=== PATIENT | female | born 1980 | race Caucasian/White ===

== ENCOUNTER 2016-06-23 18:35 | Emergency (ER) | payer OTHER ==
[2016-06-23 18:59] VITALS: BP 130/75; PULSE 84; TEMP 98; BMI 25.2
--- NOTE | 2016-06-23 20:00 | PDOC ---
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 States has general malaise. States fevers Tmax 102 yesterday. Has been using Tylenol, and is requesting cough medicine with codeine 06/23/16 21:46 Timing/Duration: reports: getting worse Severity: reports: mild, moderate Associated Symptoms: reports: chest pain/soreness (pleuritic), cough, fever/ chills, nasal congestion Past History - Travel Traveled outside of the country in the last 30 days: No Close contact w/someone who was outside of country & ill: No - Past Medical History Allergies/Adverse Reactions: Allergies Allergy/AdvReac Type Severity Reaction Status Date / Time No Known Allergies Allergy Verified 06/23/16 18:55 Home Medications: Ambulatory Orders Albuterol Sulfate Inhaler - [Ventolin HFA Inhaler -] 2 inh PO Q4H PRN #1 inh 01/16 Albuterol 0.083% Nebulizer Jaelyn [Ventolin 0.083% Nebulizer Soln -] 1 neb NEB Q6H PRN #2 box 03/19/15 Prednisone [Deltasone -] 20 mg PO DAILY #4 tablet 03/19/15 Oseltamivir Phosphate [Tamiflu -] 75 mg PO BID #10 capsule 06/23/16 Asthma: Yes - Surgical History Abdominal Surgery: Yes (ABD HERNIA) Cholecystectomy: Yes - Psycho/Social/Smoking Cessation Hx Anxiety: No Suicidal Ideation: No Smoking Status: No Smoking History: Never smoked Have you smoked in the past 12 months: No Number of Cigarettes Smoked Daily: 0 Information on smoking cessation initiated: No Hx Alcohol Use: No Drug/Substance Use Hx: No Substance Use Type: None Respiratory Specific PMHX - Complaint Specific PMHX Bronchitis: No Pneumonia: No Review of Systems - Review of Systems Able to Perform ROS?: Yes Is the patient limited Macedonian proficient: Yes Constitutional: Yes: Symptoms Reported, Malaise HEENTM: Yes: Symptoms Reported, See HPI Respiratory: Yes: Symptoms reported, See HPI, Cough (nonproductive), Wheezing Musculoskeletal: Yes: Symptoms Reported, Muscle Pain Integumentary: No: Symptoms Reported Neurological: No: Symptoms reported All Other Systems: Reviewed and Negative *Physical Exam - Vital Signs Last Vital Signs Temp Pulse Resp BP Pulse Ox 98.0 F 84 18 130/75 100 06/23/16 18:56 06/23/16 18:56 06/23/16 18:56 06/23/16 18:56 06/23/16 18:56 - Physical Exam General Appearance: Yes: Nourished, Appropriately Dressed, Apparent Distress, Mild Distress HEENT: positive: NARAYAN (lastly), TMs Normal (congested but landmarks easily visualized), Pharynx Normal (no redness swelling or exudate, however has posterior sinus drainage), Rhinorrhea (clear) Neck: positive: Tender, Supple, Lymphadenopathy (R), Lymphadenopathy (L) ( nontender) Respiratory/Chest: positive: Lungs Clear (no wheezing or retractions), Normal Breath Sounds Musculoskeletal: positive: Normal Inspection Extremity: positive: Normal Capillary Refill, Normal Inspection, Normal Range of Motion Integumentary: positive: Normal Color, Dry, Warm, Pale 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 Reviewed locked in's to prescribe Phenergan with codeine cough elixir as the highly addictive potential and abuse potential. Patient adamant and requests. Instructed patient to follow-up with her private physician for prescription for narcotic cough elixir as they deem appropriate. Otherwise conservative measures for cough suppressant and Tamiflu Medical Decision Making - Medical Decision Making 06/23/16 20:00 *DC/Admit/Observation/Transfer Diagnosis at time of Disposition: Influenza - Discharge Dispostion Disposition: HOME Condition at time of disposition: Stable Admit: No - Prescriptions Prescriptions: Oseltamivir Phosphate [Tamiflu -] 75 mg PO BID #10 capsule - Referrals Referrals: Kamron Tena MD [Primary Care Provider] - - Patient Instructions Printed Discharge Instructions: DI for Influenza -- Adult Additional Instructions: Rest, drink lots of fluids: Teas, water, soups, Pedialyte Saltwater gargles Steamy showers/seem to face break up mucus Old-fashioned treatments help! Avoid contact with others until fevers and cough resolved as this is very contagious Lots of handwashing and good hygiene Continue [id number] medications for symptomatic relief Tylenol or Motrin for fever and pain Take all of Tamiflu as directed: 1 tab every 12 hours for 5 days Followup with private physician in one to 2 days as needed or if worsening Return to emergency department for worsened symptoms, fevers, dehydration Influenza takes between 5 and 7 days for resolution To not participate in any activity, work, or school until fevers and cough are gone for at least one day - Post Discharge Activity Work/School Note: Back to Work
== END 2016-06-23 20:09 | disposition home or self-care (01) ==
LOC: JERFT 18:35
DX: J11.1 Influenza due to unidentified influenza virus with other respiratory manifestations (principal); J45.909 Unspecified asthma, uncomplicated
CPT/HCPCS: 99281-25

== ENCOUNTER 2016-09-18 11:09 | Emergency (ER) | payer OTHER ==
[2016-09-18 11:13] VITALS: BP 106/67; PULSE 90; TEMP 98; BMI 24.8
[2016-09-18] MEDS ORDERED: IBUPROFEN 400 MG TABLET (FP) PO ONE (11:43)
--- NOTE | 2016-09-18 11:55 | PDOC ---
History of Present Illness - General Chief Complaint: Pain Stated Complaint: BACK & RT HIP PAIN Time Seen by Provider: 09/18/16 11:16 History Source: Patient - History of Present Illness Occurred: reports: yesterday Pain Location: reports: back Method of Injury: Yes: fall Past History - Past Medical History Allergies/Adverse Reactions: Allergies Allergy/AdvReac Type Severity Reaction Status Date / Time No Known Allergies Allergy Verified 09/18/16 11:13 Home Medications: Ambulatory Orders Tramadol HCl 50 mg PO Q6H #6 tablet MDD 200mg 09/18/16 Asthma: Yes - Surgical History Abdominal Surgery: Yes (ABD HERNIA) Cholecystectomy: Yes - Psycho/Social/Smoking Cessation Hx Anxiety: No Suicidal Ideation: No Smoking Status: No Smoking History: Never smoked Have you smoked in the past 12 months: No Number of Cigarettes Smoked Daily: 0 Information on smoking cessation initiated: No Hx Alcohol Use: No Drug/Substance Use Hx: No Substance Use Type: None Review of Systems - Review of Systems Musculoskeletal: Yes: Back Pain. No: Neck Pain Neurological: No: Numbness, Tingling, Weakness *Physical Exam - Vital Signs Last Vital Signs Temp Pulse Resp BP Pulse Ox 98 F 90 18 106/67 98 09/18/16 11:10 09/18/16 11:10 09/18/16 11:10 09/18/16 11:10 09/18/16 11:10 - Physical Exam General Appearance: Yes: Appropriately Dressed. No: Apparent Distress HEENT: positive: Normal Voice Neck: positive: Supple Respiratory/Chest: negative: Respiratory Distress Musculoskeletal: positive: Vertebral Tenderness Extremity: positive: Normal Inspection Integumentary: positive: Dry, Warm Neurologic: positive: Fully Oriented, Alert, Normal Mood/Affect ED Treatment Course - RADIOLOGY Radiology Studies Ordered: Category Date Time Status SPINE-LUMBAR SACRAL [RAD] Stat Radiology 09/18/16 11:43 Ordered Medical Decision Making - Medical Decision Making 09/18/16 11:55 36 yo F, h/o gastritis, here w/ low back pain s/p trip and fall yesterday. Reports falling "flat on my back". Unable to describe pain but states it is severe, non-radiating and worse w/ any movement. No LE weakness, saddle anesthesia or b/b incontinence. Taking tylenol w/ no relief. Pt well aury and in NAD w/ +ttp diffusely to lower back, pt ambulatory in ED. M.l MSK, r/o fx. Pain control in ED 09/18/16 11:58 09/18/16 13:07 XR neg for fx. Pt better s/p meds. Dc w/ pain control. *DC/Admit/Observation/Transfer Diagnosis at time of Disposition: Back sprain - Discharge Dispostion Disposition: HOME Condition at time of disposition: Good - Prescriptions Prescriptions: Tramadol HCl 50 mg PO Q6H #6 tablet MDD 200mg - Patient Instructions Printed Discharge Instructions: DI for Back Strain or Sprain Additional Instructions: Rousseau XR no mostr ninguna fractura. [place] el tylenol para el dolor. [place] tramadol segn sea necesario para el dolor josie. Si el dolor persiste, siga con rousseau PMD Print Language: LITHUANIAN
[2016-09-18] MEDS ORDERED: KETOROLAC TROMETHAMINE 60 MG/2 ML VIAL IM ONE (12:24)
[2016-09-18] MEDS ORDERED: KETOROLAC TROMETHAMINE 60 MG/2 ML VIAL ONE (12:28)
== END 2016-09-18 13:26 | disposition home or self-care (01) ==
LOC: JERFT 11:09
PROC: 3E0233Z Introduction of Anti-inflammatory into Muscle, Percutaneous Approach (ICD-10-PCS; principal; 2016-09-18)
DX: S39.012A Strain of muscle, fascia and tendon of lower back, initial encounter (principal); W01.0XXA Fall on same level from slipping, tripping and stumbling without subsequent striking against object, initial encounter; Y93.89 Activity, other specified; Y92.89 Other specified places as the place of occurrence of the external cause; Y99.8 Other external cause status
CPT/HCPCS: 72100-TC; 84703; 99281-25

== ENCOUNTER 2016-10-25 18:09 | Emergency (ER) | payer OTHER ==
[2016-10-25 18:15] VITALS: BP 118/65; PULSE 106; TEMP 98.8; BMI 24.6
[2016-10-25] MEDS ORDERED: IBUPROFEN 600 MG TABLET (FP) PO ONE ×2 (18:35→18:37)
--- NOTE | 2016-10-25 18:41 | PDOC ---
History of Present Illness <Gabriella Rodriguez - Last Filed: 10/25/16 19:45> - General History Source: Patient Exam Limitations: No Limitations - History of Present Illness Initial Comments: 10/25/16 18:38 36-year-old female presents with sore throat and complaints of generalized chills for the past 2 days. 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 Patient denies difficulty swallowing, recent dental work , decreased hearing, thyroid disease, cough, shortness of breath, abdominal pain. Patient denies medical history. Timing/Duration: other Severity: mild Associated Symptoms: reports: fever/chills. denies: cough <BriaSalley - Last Filed: 10/26/16 07:40> - General Chief Complaint: Sore Throat Stated Complaint: PAIN Time Seen by Provider: 10/25/16 18:28 Past History <Gabriella Rodriguez - Last Filed: 10/25/16 19:45> - Past Medical History Asthma: Yes - Surgical History Abdominal Surgery: Yes (ABD HERNIA) Cholecystectomy: Yes - Psycho/Social/Smoking Cessation Hx Anxiety: No Suicidal Ideation: No Smoking Status: No Smoking History: Never smoked Have you smoked in the past 12 months: No Number of Cigarettes Smoked Daily: 0 Hx Alcohol Use: No Drug/Substance Use Hx: No Substance Use Type: None Patient Lives Alone: No Lives with/in: spouse/SO <Marilyn Fraser - Last Filed: 10/26/16 07:40> - Past Medical History Allergies/Adverse Reactions: Allergies Allergy/AdvReac Type Severity Reaction Status Date / Time No Known Allergies Allergy Verified 10/25/16 18:15 Home Medications: Ambulatory Orders Ibuprofen [Motrin -] 600 mg PO TID PRN #21 tablet 10/25/16 Loratadine [Claritin] 10 mg PO DAILY #30 tablet 10/25/16 Phenol/Glycerin [Chloraseptic Max [place]] 1 spray MM QID PRN #1 bottle 10/25/16 Review of Systems - Review of Systems Able to Perform ROS?: Yes Constitutional: Yes: Chills HEENTM: Yes: Ear Pain (mild bilateral), Throat Pain. No: Symptoms Reported Respiratory: No: Symptoms reported Musculoskeletal: No: Symptoms Reported Integumentary: No: Symptoms Reported Neurological: No: Symptoms reported Endocrine: No: Symptoms Reported Hematologic/Lymphatic: No: Symptoms Reported <Marilyn Fraser - Last Filed: 10/26/16 07:40> *Physical Exam - Vital Signs Last Vital Signs Temp Pulse Resp BP Pulse Ox 98.8 F 106 H 20 118/65 98 10/25/16 18:13 10/25/16 18:13 10/25/16 18:13 10/25/16 18:13 10/25/16 18:13 <Gabriella Rodriguez - Last Filed: 10/25/16 19:45> - Vital Signs Last Vital Signs Temp Pulse Resp BP Pulse Ox 98.8 F 106 H 20 118/65 98 10/25/16 18:13 10/25/16 18:13 10/25/16 18:13 10/25/16 18:13 10/25/16 18:13 - Physical Exam General Appearance: Yes: Nourished, Appropriately Dressed. No: Apparent Distress HEENT: positive: EOMI, NARAYAN, TMs Normal, Pharynx Normal. negative: Pale Conjunctivae, Pharyngeal Erythema (2+ pink tonsils deangelo) Neck: positive: Normal Thyroid. negative: Lymphadenopathy (R), Lymphadenopathy (L) Respiratory/Chest: positive: Lungs Clear, Normal Breath Sounds. negative: Respiratory Distress, Accessory Muscle Use Cardiovascular: positive: Regular Rhythm, Regular Rate. negative: Murmur Gastrointestinal/Abdominal: positive: Soft. negative: Tenderness Integumentary: positive: Normal Color, Warm, Moist Neurologic: positive: Motor Strength 5/5 (ambulatory) <Marilyn Fraser - Last Filed: 10/26/16 07:40> ED Treatment Course - ADDITIONAL ORDERS Additional order review: 10/25/16 18:30 Group A Strep Rapid Antigen - Final Throat - Medications Given in the ED: ED Medications Discontinued Medications Generic Name Dose Route Start Last Admin Trade Name Freq PRN Reason Stop Dose Admin Ibuprofen 600 mg 10/25/16 18:35 10/25/16 18:39 Motrin - PO 10/25/16 18:36 600 mg ONCE ONE Administration <Gabriella Rodriguez - Last Filed: 10/25/16 19:45> Medical Decision Making - Medical Decision Making 10/25/16 18:45 Patient complains of chills, sore throat, mild bilateral ear pain. Patient on exam had no acute findings. Patient was ordered for Motrin and rapid strep. 10/26/16 07:40 <Marilyn Fraser - Last Filed: 10/26/16 07:40> *DC/Admit/Observation/Transfer - Discharge Dispostion Admit: No <Gabriella Rodriguez - Last Filed: 10/25/16 19:45> <Marilyn Fraser - Last Filed: 10/26/16 07:40> Diagnosis at time of Disposition: Sore throat - Discharge Dispostion Disposition: HOME Condition at time of disposition: Stable - Prescriptions Prescriptions: Phenol/Glycerin [Chloraseptic Max [place]] 1 spray MM QID PRN #1 bottle PRN Reason: Pain Loratadine [Claritin] 10 mg PO DAILY #30 tablet Ibuprofen [Motrin -] 600 mg PO TID PRN #21 tablet PRN Reason: Fever Or Pain - Referrals Referrals: Roopa Carreno [Primary Care Provider] - - Patient Instructions Printed Discharge Instructions: DI for Allergic Rhinitis Additional Instructions: Please take medications as prescribed and follow up with your primary care doctor if symptoms persist past 7 days. If you experience any shortness of breath, chest pain, vomiting, diarrhea, or any new or worsening symptoms, please return to the ER. Print Language: JAPANESE
== END 2016-10-25 19:48 | disposition home or self-care (01) ==
LOC: JERFT 18:09
DX: J02.9 Acute pharyngitis, unspecified (principal)
CPT/HCPCS: 87070; 87430; 99281-25

== ENCOUNTER 2017-12-22 07:17 | Emergency (ER) | payer OTHER ==
--- NOTE | 2017-12-22 08:48 | PDOC ---
History of Present Illness - General Chief Complaint: Pain, Acute Stated Complaint: PAIN Time Seen by Provider: 12/22/17 08:32 - History of Present Illness Initial Comments: 12/22/17 08:47 37 yo F with h/o HLD, asthma, cholecystecomy, and ovarian cysts who p/w diffuse abdominal pain. Patient with acute on chronic abdominal pain within past 24 hours. Reports diffuse, crampy abdominal pain, worse with movement, radiating from right and left side. Also reports light and dark stools, and "strong smelling urine." + Decreased appetite, nausea, and diffuse pruritus x 24 hours. Denies postprandial pain. Last seen at [facility] ED (09/14/17) with LLQ abdominal pain and ovarian cyst ( absent torsion) confirmed by Transvaginal U/S. Patient denies F,C, CP, SOB, hematuria, irregular vaginal bleeding, diarrhea, constipation, lightheadedness, weakness, sensory changes. PMHx: as noted above. ROS: as noted SHx: Social Etoh. Denies tobacco, IVDA Allergies: NKDA Past History - Past Medical History Allergies/Adverse Reactions: Allergies Allergy/AdvReac Type Severity Reaction Status Date / Time No Known Allergies Allergy Verified 12/22/17 08:21 Home Medications: Ambulatory Orders Cholecalciferol (Vitamin D3) [Vitamin D3 -] 600 unit PO DAILY 12/22/17 Asthma: Yes COPD: No - Surgical History Abdominal Surgery: Yes (ABD HERNIA) Cholecystectomy: Yes - Suicide/Smoking/Psychosocial Hx Smoking Status: No Smoking History: Never smoked Have you smoked in the past 12 months: No Number of Cigarettes Smoked Daily: 0 Information on smoking cessation initiated: No Hx Alcohol Use: No Drug/Substance Use Hx: No Substance Use Type: None Review of Systems - Review of Systems Comments:: 12/22/17 09:47 GENERAL/CONSTITUTIONAL: No fever or chills. No weakness. HEAD, EYES, EARS, NOSE AND THROAT: No change in vision. No ear pain or discharge. No sore throat. CARDIOVASCULAR: No chest pain or shortness of breath RESPIRATORY: No cough, wheezing, or hemoptysis. GASTROINTESTINAL: + abdominal pain. No nausea, vomiting, diarrhea or constipation. GENITOURINARY: No dysuria, frequency, or change in urination. MUSCULOSKELETAL: No joint or muscle swelling or pain. No neck or back pain. SKIN: No rash NEUROLOGIC: No headache, vertigo, loss of consciousness, or change in strength/ sensation. ENDOCRINE: No increased thirst. No abnormal weight change HEMATOLOGIC/LYMPHATIC: No anemia, easy bleeding, or history of blood clots. ALLERGIC/IMMUNOLOGIC: No hives or skin allergy. *Physical Exam - Vital Signs Last Vital Signs Temp Pulse Resp BP Pulse Ox 98.5 F 63 16 106/71 100 12/22/17 08:22 12/22/17 08:22 12/22/17 08:22 12/22/17 08:22 12/22/17 08:22 - Physical Exam Comments: 12/22/17 09:48 GENERAL: Awake, alert, and fully oriented, in no acute distress HEAD: No signs of trauma, normocephalic, atraumatic EYES: PERRLA, EOMI, sclera anicteric, conjunctiva clear ENT: Hearing grossly normal, nares patent, oropharynx clear without exudates. Moist mucosa NECK: Normal ROM, supple, no lymphadenopathy, JVD, or masses LUNGS: No distress, speaks full sentences, clear to auscultation bilaterally HEART: Regular rate and rhythm, normal S1 and S2, no murmurs, rubs or gallops, peripheral pulses normal and equal bilaterally. ABDOMEN: + diffuse (RUQ predominant) ttp. Soft, NDS, normoactive bowel sounds. No guarding, no rebound. No masses. Neg CVA ttp. EXTREMITIES : Normal inspection, Normal range of motion, no edema. No clubbing or cyanosis. SKIN: Warm, Dry, normal turgor, no rashes or lesions noted ED Treatment Course - LABORATORY CBC & Chemistry Diagram: 12/22/17 10:35 12/22/17 10:35 Medical Decision Making - Medical Decision Making 12/22/17 09:45 37 yo F with h/o HLD, asthma, cholecystecomy, and ovarian cysts who p/w diffuse abdominal pain. VSS, AF. Abdomen diffusely ttp, with RUQ predominant ttp. Non jaundiced appearing. R/o cholangitis vs. biliary dz. DDx: colitis, pancreatitis , cystitis, pyelonephritis, appendicitis, ovarian pathology. Ed Course: CBC, CMP, Lipase UA, HCG Tylenol, Pepcid, Zofran 12/22/17 13:17 CT AP: Unremarkable 12/22/17 13:17 CBC,CMP: Unremarkable UA: 3+ BLOOD, 9 RBC 12/22/17 15:00 Transvaginal U/S: Unremarkable Patient stable for d/c with return precautions. Advised to f/u with GI and PMD. *DC/Admit/Observation/Transfer Diagnosis at time of Disposition: Abdominal pain Qualifiers: Abdominal location: generalized Qualified Code(s): R10.84 - Generalized abdominal pain - Discharge Dispostion Condition at time of disposition: Stable Decision to Admit order: No - Referrals Referrals: Ty Villalobos MD [Primary Care Provider] - Henry Freeman MD [Staff Physician] - - Patient Instructions Printed Discharge Instructions: DI for Abdominal Pain-Adult Additional Instructions: Please return to the emergency department with any new or worsening symptoms or concerns. Please follow up with your primary care physician within 72 hours. Please follow up with gastroenterology within one week. - Post Discharge Activity - Attestations Physician Attestion: 12/22/17 13:20 I attest to the information provided in this note.
[2017-12-22 08:49] VITALS: BMI 25.0
[2017-12-22] MEDS ORDERED: ACETAMINOPHEN 1000 MG/100 ML VIAL (NON FORMULARY) IVPB ONE (09:40)
[2017-12-22] MEDS ORDERED: ONDANSETRON 4 MG/2 ML VIAL IVPUSH ONE (09:40)
[2017-12-22] MEDS ORDERED: FAMOTIDINE 20 MG/50 ML IVPB 20 MG/50 ML MG IVPB ONE ×2 (09:40→10:16)
[2017-12-22] MEDS ORDERED: ONDANSETRON 4 MG/2 ML VIAL ONE (10:16)
[2017-12-22 10:45] LABS: URINE APPEARANCE CLEAR; URINE BILIRUBIN NEGATIVE (<2.0 mg/dL); URINE COLOR STRAW; URINE GLUCOSE (UA) NEGATIVE (NEGATIVE); URINE KETONE NEGATIVE (NEGATIVE); URINE LEUK ESTERASE NEGATIVE (NEGATIVE); URINE NITRITE NEGATIVE (NEGATIVE); URINE PROTEIN NEGATIVE (NEGATIVE); URINE UROBILINOGEN NEGATIVE mg/dL (0.2-1.0)
[2017-12-22 10:47] LABS: HCG,QUALITATIVE URINE NEGATIVE
[2017-12-22 10:48] LABS: EPI CELLS RARE /HPF (FEW)
[2017-12-22 10:49] LABS: BASO % 0.7 % (0-2.0); EOS % 7.9 % (0-4.5); HEMATOCRIT 38.8 % (32.4-45.2); HEMOGLOBIN 13.5 GM/dL (10.7-15.3); LYMPH % 30.3 % (8-40); MCH 32.4 pg (25.7-33.7); MCHC 34.8 g/dl (32.0-36.0); MEAN CELL VOLUME 93.3 fl (80-96); MONO % 4.4 % (3.8-10.2); NEUT % 56.7 % (42.8-82.8); PLATELET COUNT 214 K/MM3 (134-434); RBC 4.16 M/mm3 (3.60-5.2); RDW 13.3 % (11.6-15.6); WHITE BLOOD COUNT 7.1 K/mm3 (4.0-10.0)
[2017-12-22] MEDS ORDERED: ACETAMINOPHEN INJECTION 100 ML IVPB ONE (10:59)
--- NOTE | 2017-12-22 11:08 | PDOC ---
*Physical Exam - Vital Signs Last Vital Signs Temp Pulse Resp BP Pulse Ox 98.5 F 63 16 106/71 100 12/22/17 08:22 12/22/17 08:22 12/22/17 08:22 12/22/17 08:22 12/22/17 08:22 - Physical Exam General Appearance: Yes: Nourished ED Treatment Course - LABORATORY CBC & Chemistry Diagram: 12/22/17 10:35 12/22/17 10:35 *DC/Admit/Observation/Transfer - Referrals Referrals: Ty Villalobos MD [Primary Care Provider] - - Patient Instructions - Post Discharge Activity
[2017-12-22 11:10] LABS: ALBUMIN 3.8 g/dl (3.4-5.0); ALK PHOS 90 U/L (45-117); ANION GAP 6 (8-16); BILIRUBIN,TOTAL 0.2 mg/dL (0.2-1.0); BLOOD UREA NITROGEN 10 mg/dL (7-18); CALCIUM 8.6 mg/dL (8.5-10.1); CHLORIDE 109 mmol/L (98-107); CO2 27 mmol/L (21-32); CREATININE 0.5 mg/dL (0.55-1.02); GLUCOSE,RANDOM 84 mg/dL (74-106); POTASSIUM 4.2 mmol/L (3.5-5.1); SGOT/AST 19 U/L (15-37); SGPT/ALT 21 U/L (12-78); SODIUM 142 mmol/L (136-145); TOT PROT 7.3 g/dl (6.4-8.2)
--- NOTE | 2017-12-22 11:11 | PDOC ---
Attending Attestation - Resident Resident Name: Raulito Booker - ED Attending Attestation I have performed the following: I have examined & evaluated the patient, The case was reviewed & discussed with the resident, I agree w/resident's findings & plan, Exceptions are as noted - HPI HPI: 12/22/17 11:09 37 yo F h/o cholecystectomy here wtih /co right upper quadrant and now generalized abd pain. nausea no vomiting. no f/c no mod factors. urinary frequency. - Physicial Exam PE: 12/22/17 11:09 awake alert lungs clear bilaterally heart rrr no mrg. abd soft , mild ruq ttp. no rebound no guarding. no cva tenderness. ext wwp no edema. no calf tenderness. pulses equal strong symmetric. nuero alert oriented x 3. skin warm and dry. - Medical Decision Making 12/22/17 11:10 differential diagnosis. retained stone, pyelo uti renal colic, ruptured ovarian cyst. plan tvus, possible ct labs ua ucg. reassess.
[2017-12-22 18:25] VITALS: BP 115/86; PULSE 69; TEMP 97.9
== END 2017-12-22 15:17 | disposition home or self-care (01) ==
LOC: JER 07:17
PROC: 3E033GC Introduction of Other Therapeutic Substance into Peripheral Vein, Percutaneous Approach (ICD-10-PCS; principal; 2017-12-22)
PROC: 3E033GC Introduction of Other Therapeutic Substance into Peripheral Vein, Percutaneous Approach (ICD-10-PCS; 2017-12-22)
PROC: 3E033NZ Introduction of Analgesics, Hypnotics, Sedatives into Peripheral Vein, Percutaneous Approach (ICD-10-PCS; 2017-12-22)
DX: R10.84 Generalized abdominal pain (principal); Z90.49 Acquired absence of other specified parts of digestive tract
CPT/HCPCS: 36415; 74176; 76830-TC; 80053; 81003; 81015; 83690; 84703; 85025; 87086; 96365; 96375; 99282-25; J0131

== ENCOUNTER 2018-02-06 10:32 | Day surgery (SDC) | payer OTHER ==
[2018-02-06 11:13] VITALS: BMI 24.2
[2018-02-06 12:43] VITALS: TEMP 98.7
[2018-02-06 13:04] VITALS: PULSE 88
[2018-02-06 13:20] VITALS: BP 109/69
--- NOTE | 2018-02-07 11:48 | PATH ---
Surgical Pathology Report Patient Name: KAYLA TABOR [facility]. Rec. #: [id number] /Age/Gender: 1980 (Age: 38) / F Account: [id number] Location: U-ENDOSCOPY Taken: 02/06/2018 Received: 02/06/2018 Reported: 02/07/2018 Physicians: Mikey Mei M.D. Specimen(s) Received A: BX 2ND PORTION DUODENUM B: BX ANTRUM Clinical History Dyspepsia, epigastric pain Postoperative diagnosis: Gastritis, hiatal hernia Final Diagnosis A. DUODENUM, SECOND PORTION, BIOPSY: DUODENAL MUCOSA WITHOUT SIGNIFICANT PATHOLOGIC FINDINGS. B. STOMACH, ANTRUM, BIOPSY: GASTRIC ANTRAL MUCOSA WITH MILD CHRONIC GASTRITIS. IMMUNOHISTOCHEMICAL STAIN FOR H. PYLORI IS NEGATIVE. Electronically Signed Karyn Barton M.D. Gross Description A. Received in formalin, labeled "biopsy second portion of duodenum" are 3 el, irregular portions of soft tissue ranging from 0.1-0.2 cm. in greatest dimension. The specimens are submitted in toto in one cassette. B. Received in formalin, labeled "biopsy antrum" are 2 el, irregular portions of soft tissue measuring 0.3 and 0.4 cm. in greatest dimension. The specimens are submitted in toto in one cassette. 02/06/201802/06/2018
== END 2018-02-06 13:21 | disposition home or self-care (01) ==
LOC: JASU-ENDO 10:32
PROVIDERS: ATTEND Internal Medicine Gastroenterology
PROC: 0DB68ZX Excision of Stomach, Via Natural or Artificial Opening Endoscopic, Diagnostic (ICD-10-PCS; 2018-02-06)
PROC: 0DB98ZX Excision of Duodenum, Via Natural or Artificial Opening Endoscopic, Diagnostic (ICD-10-PCS; principal; 2018-02-06 12:00)
DX: K29.50 Unspecified chronic gastritis without bleeding (principal); R10.13 Epigastric pain
CPT/HCPCS: 84703; 88305-TC; 88342-TC

== ENCOUNTER 2019-01-08 10:49 | Emergency (ER) | payer OTHER ==
[2019-01-08 10:54] VITALS: BP 101/66; PULSE 81; TEMP 97.8; BMI 24.8
--- NOTE | 2019-01-08 11:28 | PDOC ---
History of Present Illness - General Chief Complaint: Pain, Acute Stated Complaint: ABD PAIN Time Seen by Provider: 01/08/19 11:20 History Source: Patient Exam Limitations: Clinical Condition - History of Present Illness Initial Comments: 01/08/19 11:37 Patient with history of asthma present with complaint of 2 months history of right upper quadrant and right lower quadrant pain which has been worsening the past 2 days. Patient reported going to see her SCOURING MACHINE OPERATOR this morning for pain which she did the vaginal exam and said everything was fine but signed for appendicitis given right lower quadrant pain and sent her for evaluation to rule out appendicitis. Patient reported nausea but denies vomiting. Reported tactile fevers yesterday but no fever today. Patient also reported mild burning with urination but denies united frequency or dysuria. Denies taking any medication for symptoms. Denies constipation, diarrhea, weakness. LMP December 29. Denies any other symptoms Timing/Duration: other (2 months) Past History - Past Medical History Allergies/Adverse Reactions: Allergies Allergy/AdvReac Type Severity Reaction Status Date / Time No Known Allergies Allergy Verified 01/08/19 10:55 Home Medications: Ambulatory Orders Cholecalciferol (Vitamin D3) [Vitamin D -] 600 unit PO DAILY 12/22/17 Cholecalciferol (Vitamin D3) [Vitamin D3] 2,000 unit PO DAILY #90 capsule Albuterol 0.083% Nebulizer Jaelyn [Ventolin 0.083% Nebulizer Soln -] 1 neb IA PRN 02/05/18 Ibuprofen 800 mg PO Q8H PRN #20 tablet 01/08/19 Mag Hydrox/Aluminum Hyd/Simeth [Maalox Advanced Suspension] 30 ml PO Q8H PRN # 100 ml 01/08/19 Anemia: No Asthma: Yes Cancer: No Cardiac Disorders: No CVA: No COPD: No CHF: No Dementia: No Diabetes: No GI Disorders: Yes (GASTRITIS, H.PYLORI) Disorders: No HTN: No Hypercholesterolemia: No Liver Disease: No Seizures: No Thyroid Disease: No - Surgical History Abdominal Surgery: Yes (ABD HERNIA) Appendectomy: No Cardiac Surgery: No Cholecystectomy: Yes Lung Surgery: No Neurologic Surgery: No Orthopedic Surgery: No - Suicide/Smoking/Psychosocial Hx Smoking Status: No Smoking History: Never smoked Have you smoked in the past 12 months: No Number of Cigarettes Smoked Daily: 0 Hx Alcohol Use: No Drug/Substance Use Hx: No Substance Use Type: None Hx Substance Use Treatment: No Review of Systems - Review of Systems Able to Perform ROS?: Yes Constitutional: No: Chills, Fever, Malaise HEENTM: No: Symptoms Reported Respiratory: No: Symptoms reported Cardiac (ROS): No: Symptoms Reported ABD/GI: Yes: Symptoms Reported, See HPI, Nausea, Abdominal cramping (RUQ,RLQ pain). No: Abdominal Distended, Abd. Pain w/ defecation, Blood Streaked Bowels , Constipated, Diarrhea, Difficulty Swallowing, Poor Fluid Intake, Rectal Bleeding, Vomiting, Indigestion : Yes: Symptoms Reported, See HPI, Burning. No: Dysuria, Discharge, Frequency , Flank Pain, Urgency Musculoskeletal: No: Symptoms Reported, Back Pain Neurological: No: Symptoms reported, Dizziness All Other Systems: Reviewed and Negative *Physical Exam - Vital Signs Last Vital Signs Temp Pulse Resp BP Pulse Ox 97.8 F 81 16 101/66 96 01/08/19 10:52 01/08/19 10:52 01/08/19 10:52 01/08/19 10:52 01/08/19 10:52 - Physical Exam Comments: 01/08/19 11:45 GENERAL: Well developed, well nourished. Awake and alert. No acute distress. HEENT: Normocephalic, atraumatic. PERRLA, EOMI. No conjunctival pallor. Sclera are non-icteric. Moist mucous membranes. Oropharynx is clear. NECK: Supple. Full ROM. CARDIOVASCULAR: Regular rate and rhythm. No murmurs, rubs, or gallops. Distal pulses are 2+ and symmetric. PULMONARY: No evidence of respiratory distress. Lungs clear to auscultation bilaterally. No wheezing, rales or rhonchi. ABDOMINAL: Soft. Mild tenderness to right upper quadrant and right lower quadrant areas. Non-distended. No rebound or guarding. No organomegaly. Normoactive bowel sounds. MUSCULOSKELETAL Normal range of motion at all joints. SKIN: Warm and dry. Normal capillary refill. No rashes. No jaundice. NEUROLOGICAL: Alert, awake, appropriate. Gait is normal without ataxia. PSYCHIATRIC: Cooperative. Good eye contact. Appropriate mood General Appearance: Yes: Nourished, Appropriately Dressed, Mild Distress ED Treatment Course - LABORATORY CBC & Chemistry Diagram: 01/08/19 13:08 01/08/19 13:08 Medical Decision Making - Medical Decision Making 01/08/19 11:39 Patient with history of asthma present with complaint of 2 months history of right upper quadrant and right lower quadrant pain which has been worsening the past 2 days. Patient reported going to see her SCOURING MACHINE OPERATOR this morning for pain which she did the vaginal exam and said everything was fine but signed for appendicitis given right lower quadrant pain and sent her for evaluation to rule out appendicitis. Patient reported nausea but denies vomiting. Reported tactile fevers yesterday but no fever today. Patient also reported mild burning with urination but denies united frequency or dysuria. Denies taking any medication for symptoms. Denies constipation, diarrhea, weakness. LMP December 29. Denies any other symptoms Exam significant for mild tenderness to right upper quadrant and right lower quadrant pain without guarding or rebound normal bowel sounds diffusely. Normal cardio and lung exam. Symptoms likely gastroenteritis versus appendicitis versus ovarian cysts. CBC, CMP and lipase lab ordered. UA, urine hCG a urine culture ordered. Urine GC and chlamydia tests ordered. Abdominal CT with IV contrast ordered to evaluate for appendicitis 01/08/19 15:57 UA, urine culture, CBC labs unremarkable. pelvic U/S shows no acute pathology. Abd/pelvis CT shows no appendicitis or acute abdominal pathology. Patient symptoms likely muscle cramps vs gastroenteritis. Patient stable for discharge on maalox prn and motrin prn for pain with GI f/u Pt also advised to f/u back with her SCOURING MACHINE OPERATOR who sent her to r/o appendicitis. *DC/Admit/Observation/Transfer Diagnosis at time of Disposition: Abdominal pain Qualifiers: Abdominal location: unspecified location Qualified Code(s): R10.9 - Unspecified abdominal pain - Discharge Dispostion Disposition: HOME Condition at time of disposition: Stable Decision to Admit order: No - Prescriptions Prescriptions: Ibuprofen 800 mg PO Q8H PRN #20 tablet PRN Reason: pain Mag Hydrox/Aluminum Hyd/Simeth [Maalox Advanced Suspension] 30 ml PO Q8H PRN # 100 ml PRN Reason: abdominal discomfort - Referrals Referrals: David Welilngton MD [Staff Physician] - - Patient Instructions Additional Instructions: Your abdominal Cats scan and ultrasound is normal. Your labs are also normal. Take prescribed medication as needed for pain. Follow-up with referred GI if symptoms persist - Post Discharge Activity
--- NOTE | 2019-01-08 12:05 | PDOC ---
*Physical Exam - Vital Signs Last Vital Signs Temp Pulse Resp BP Pulse Ox 97.8 F 81 16 101/66 96 01/08/19 10:52 01/08/19 10:52 01/08/19 10:52 01/08/19 10:52 01/08/19 10:52 ED Treatment Course - LABORATORY CBC & Chemistry Diagram: 01/08/19 13:08 01/08/19 13:08 Medical Decision Making - Medical Decision Making 01/08/19 12:03 Ms Daugherty presents to the ER today due to abdominal pain Pt has had 2 months history of right sided abdominal pain Pt saw OFFICE MACHINE TECHNICIAN this morning who referred her to the ER to rule out appendicitis. (+) Nausea, no vomiting Will do: Labs CT TV US Re Assess 01/08/19 15:11 CT - no acute appendicitis US - no ovarian torsion Pt seen by RENNY Ward Agree with plan *DC/Admit/Observation/Transfer Diagnosis at time of Disposition: Abdominal pain - Discharge Dispostion Disposition: HOME Condition at time of disposition: Stable - Prescriptions Prescriptions: Cephalexin Monohydrate [Keflex -] 500 mg PO BID #14 capsule Ibuprofen 800 mg PO Q8H PRN #20 tablet PRN Reason: pain Mag Hydrox/Aluminum Hyd/Simeth [Maalox Advanced Suspension] 30 ml PO Q8H PRN # 100 ml PRN Reason: abdominal discomfort - Referrals Referrals: David Wellington MD [Staff Physician] - - Patient Instructions Additional Instructions: Your abdominal Cats scan and ultrasound is normal. Your labs are also normal. Take prescribed medication as needed for pain. Follow-up with referred GI if symptoms persist - Post Discharge Activity
[2019-01-08 13:20] LABS: BASO % 1.4 % (0-2.0); EOS % 7.8 % (0-4.5); HEMATOCRIT 41.7 % (32.4-45.2); HEMOGLOBIN 14.2 GM/dL (10.7-15.3); LYMPH % 35.1 % (8-40); MCH 32.3 pg (25.7-33.7); MCHC 34.1 g/dl (32.0-36.0); MEAN CELL VOLUME 94.7 fl (80-96); MEAN PLT VOLUME 9.1 fl (7.5-11.1); MONO % 4.6 % (3.8-10.2); NEUT % 51.1 % (42.8-82.8); PLATELET COUNT 281 K/MM3 (134-434); RDW 13.5 % (11.6-15.6); WHITE BLOOD COUNT 6.5 K/mm3 (4.0-10.0)
[2019-01-08 13:55] LABS: CHOLESTEROL 248 mg/dL (50-200); HDL CHOLESTEROL 51 mg/dL (40-60); TRIGLYCERIDES 192 mg/dL (0-150)
[2019-01-08 14:02] LABS: ALBUMIN 3.9 g/dl (3.4-5.0); BILIRUBIN,TOTAL 0.4 mg/dL (0.2-1); BLOOD UREA NITROGEN 8.6 mg/dL (7-18); CALCIUM 9.1 mg/dL (8.5-10.1); CREATININE 0.5 mg/dL (0.55-1.3); POTASSIUM 4.3 mmol/L (3.5-5.1); TOT PROT 7.6 g/dl (6.4-8.2)
[2019-01-08 14:05] LABS: HYALINE CASTS 2 /lpf (0-8); PH,URINE 5.5 (5.0-8.0); URINE APPEARANCE CLEAR; URINE BACTERIA 40.5 /hpf (NEGATIVE); URINE BILIRUBIN NEGATIVE (NEGATIVE); URINE COLOR YELLOW; URINE GLUCOSE (UA) NEGATIVE (NEGATIVE); URINE KETONE NEGATIVE (NEGATIVE); URINE LEUK ESTERASE 1+ (NEGATIVE); URINE NITRITE NEGATIVE (NEGATIVE); URINE PROTEIN NEGATIVE (NEGATIVE); URINE RBC 0 /hpf (0-4); URINE UROBILINOGEN 0.2 mg/dL (0.2-1.0); URINE WBC 1 /hpf (0-5)
== END 2019-01-08 16:10 | disposition home or self-care (01) ==
LOC: JER 10:49
DX: R10.9 Unspecified abdominal pain (principal)
CPT/HCPCS: 36415; 74177-TC; 76830-TC; 80053; 80061; 81003; 83721; 84703; 85025; 87077; 87086; 87491; 87591; 99281-25

== ENCOUNTER 2023-07-21 13:10 | Emergency (ER) | payer OTHER ==
[2023-07-21 13:20] VITALS: BP 108/71; PULSE 78; RESP 20; TEMP 98.7; BMI 24.4
[2023-07-21] MEDS ORDERED: predniSONE 20 MG TABLET (UD) ONE ×2 (13:44→14:11)
[2023-07-21] MEDS: predniSONE 20 MG TABLET (UD) PO ONE (14:10)
[2023-07-21] MEDS: ALBUTEROL SO4 2.5/IPRATROPIUM 0.5 INH SOL 3 ML VIAL.NEB. NEB SCH (14:10)
[2023-07-21] MEDS ORDERED: ALBUTEROL SO4 2.5/IPRATROPIUM 0.5 INH SOL 3 ML VIAL.NEB. NEB ONE ×2 (14:11)
== END 2023-07-21 15:32 | disposition home or self-care (01) ==
LOC: FER 13:10
PROC: 3E0F7GC Introduction of Other Therapeutic Substance into Respiratory Tract, Via Natural or Artificial Opening (ICD-10-PCS; principal; 2023-07-21)
DX: R05.9 Cough, unspecified (principal); R09.81 Nasal congestion; J45.21 Mild intermittent asthma with (acute) exacerbation; Z20.822 Contact with and (suspected) exposure to COVID-19
CPT/HCPCS: 0241U-QW; 81003; 81015; 99283-25

== ENCOUNTER 2023-11-09 20:49 | Emergency (ER) | payer OTHER ==
[2023-11-09 21:15] LABS: HCG,QUALITATIVE URINE Negative
[2023-11-09 21:44] VITALS: BP 105/70; PULSE 78; RESP 16; TEMP 98.1; BMI 24.0
== END 2023-11-09 22:03 | disposition home or self-care (01) ==
LOC: FER 20:49
DX: N76.0 Acute vaginitis (principal); L29.2 Pruritus vulvae; R30.0 Dysuria
CPT/HCPCS: 81003; 81015; 84703; 87086; 99283-25

== ENCOUNTER 2024-10-11 14:44 | Emergency (ER) | payer OTHER ==
[2024-10-11 15:19] VITALS: BP 103/70; PULSE 96; RESP 16; TEMP 98.4; BMI 24.8
[2024-10-11] MEDS ORDERED: ACETAMINOPHEN 500 MG TABLET (FP) ONE (15:40)
[2024-10-11] MEDS: guaiFENesin 200 MG/10 ML 10 ML UNIT-DOSE CUPS PO ONE (15:40)
[2024-10-11] MEDS ORDERED: guaiFENesin 200 MG/10 ML 10 ML UNIT-DOSE CUPS ONE (15:41)
[2024-10-11] MEDS ORDERED: ALBUTEROL SO4 0.083% IH SOL 2.5 MG/3 ML VIAL.NEB. NEB ONE (15:41)
[2024-10-11] MEDS: ACETAMINOPHEN 500 MG TABLET (FP) PO ONE (15:45)
[2024-10-11] MEDS: ALBUTEROL SO4 0.083% IH SOL 2.5 MG/3 ML VIAL.NEB. NEB ONE (15:47)
== END 2024-10-11 16:15 | disposition home or self-care (01) ==
LOC: FER 14:44
PROC: 3E0F7GC Introduction of Other Therapeutic Substance into Respiratory Tract, Via Natural or Artificial Opening (ICD-10-PCS; principal; 2024-10-11)
DX: R05.9 Cough, unspecified (principal); R50.9 Fever, unspecified; J06.9 Acute upper respiratory infection, unspecified
CPT/HCPCS: 0241U-QW; 99283-25